=== PATIENT | female | born 1965 | race African-American/Black ===

== ENCOUNTER 2016-06-29 10:41 | Emergency (ER) | payer MEDICARE, MEDICAID ==
[2016-06-29 11:01] VITALS: TEMP 97.3; BMI 23.9
[2016-06-29 11:18] LABS: MPV 6.8 fL (7.4-10.4)
[2016-06-29 11:32] LABS: BLOOD UREA NITROGEN 64 MG/DL (7-17); CALCIUM 5.9 MG/DL (8.4-10.2); CALCULATED OSMOLALITY 291 MOs/Kg (270-290); CHLORIDE 109 mEq/L (98-107); CPK TOTAL WITH POSSIBLE MB 177 IU/L (30-134); GLUCOSE 134 MG/DL (70-99); SODIUM LEVEL 141 mEq/L (137-146); TOTAL PROTEIN 5.7 G/DL (6.3-8.2)
[2016-06-29 11:43] LABS: CALC CORRECTED 6.6 MG/DL (8.4-10.2)
[2016-06-29 11:45] LABS: PARTIAL THROMB. TIME 27.1 SEC (22-35); PT-INR 1.1
[2016-06-29 11:48] LABS: CPKMB 1.8 ng/mL (0-4.5)
--- NOTE | 2016-06-29 12:08 | EDPRACDOC ---
ED Hypoglycemia - General Information Chief Complaint: Generalized Weakness Information Source: Patient, Entry Level Manufacturing Engineer Mode of Arrival:: Ambulance Home Medications: Home Medications Insulin Detemir [Levemir] 16 unit SQ DAILY 02/13/13 Labetalol HCl [Normodyne] 400 mg PO BID 02/13/13 Pravastatin [Pravachol] 80 mg PO HS 02/13/13 Prednisone 5 mg PO DAILY 02/13/13 Tacrolimus [Prograf] 3 mg PO BID 02/13/13 Amlodipine [Norvasc] 10 mg PO DAILY 06/29/16 Ergocalciferol (Vitamin D2) [Vitamin D2 (ergocalciferol)] 50,000 units PO TH Magnesium Oxide [Magox] 400 mg PO DAILY 06/29/16 Mycophenolate Sodium [Myfortic] 540 mg PO BID 06/29/16 Allergies/Adverse Reactions: Allergies Allergy/AdvReac Type Severity Reaction Status Date / Time lisinopril Allergy Severe Edema-Oral/ Verified 06/29/16 11:09 Lip - History of Present Illness [place]: Reports: Confused, Shaky Found: Reports: Disoriented Weakness: Reports: Generalized Weakness Eating: Reports: Missed a Meal Relevent History Of: Reports: Diabetes Modifying Factors: improves with: D50 - Other History Other History: PT PRESENTS AFTER HYPOGLYCEMIC EPISODE THIS MORNING. FOUND WITH BLOOD SUGAR IN 60'S. TOOK LEVEMIR LAST NIGHT AND HAD MEAL AT THAT TIME BUT MISSED BREAKFAST THIS AM. AFTER DEXTROSE FROM EMS SHE RETURNED TO NORMAL MENTAL STATUS BUT STILL FELT A LITTLE SHAKY. - Treatment Prior to ED Arrival Reported Medications/Treatment CUSTOMS COMPLIANCE DIRECTOR Treated With Medication CUSTOMS COMPLIANCE DIRECTOR YES Medications CUSTOMS COMPLIANCE DIRECTOR (Medication/ /2 d50; glucose; Dose/Time) EMS Treatment BLS IV Yes ED Past Medical History - History Reviewed Yes Nurses notes reviewed and agree except as marked - Patient Medical History Cardiac History: Reports: Hypertension, Hypercholesterolemia GI/ History: Reports: Renal Disease Psychological History: Denies: Depression Systemic History: Reports: Anemia, Diabetes - Family Medical History Reports: Diabetes (FATHER). Denies: Hypertension, Cancer, Stroke, Cardiac Disorders - Social Medical History Smoking Status: Never smoker Lives In: Home EDM Review of Systems - Review of Systems ROS Negative Except as Marked: Yes All systems reviewed and were negative except as marked Constitutional: Fatigue. negative: Fever Respiratory: negative: Shortness of Breath Cardiovascular: negative: Chest Pain Gastrointestinal: negative: Pain, Vomiting Endocrine: Diabetes - Physical Exam Constitutional: Alert Oriented to: Time, Person, Place Last recorded Vital Signs: Last Vital Signs Temp 97.3 F L 06/29/16 10:55 Pulse 98 06/29/16 10:55 Resp 18 06/29/16 10:55 BP 133/66 06/29/16 10:55 Pulse Ox 98 06/29/16 10:55 Oxygen Pulse Oxygen Saturation 98 O2 Device Oxygen Flow Rate Fraction of Inspired Oxygen ( FIO2) - HEENT Head: negative: Deformity, Laceration Eye Exam: negative: Conjunctival Injection, Pale Conjunctiva Oropharynx: negative: Membranes Dry Nose: negative: Congestion, Discharge Neck: negative: Limited ROM - Respiratory/Cardiovascular Respiratory: Normal - CTA. negative: Accessory Muscle Use, Diminished, Tachypnea Cardiovascular: negative: Bradycardia, Tachycardia, Irregular - GI Auscultation: Normal Palpation: Normal Tenderness: Non tender - Integumentary Skin: Warm, Dry. negative: Rash - Neurologic Memory Impaired: Normal Motor Function: Normal Mood Description: Anxious Thought: Coherent Perception: Normal - Results 06/29/16 11:05 06/29/16 11:05 WBC 7.3 xk/uL (3.8-10.8) 06/29/16 11:05 RBC 2.93 xM/uL (4.20-5.40) L 06/29/16 11:05 Hgb 8.0 g/dL (12.0-16.0) L 06/29/16 11:05 Hct 25.0 % (36-47) L 06/29/16 11:05 MCV 85 fL (81-99) 06/29/16 11:05 MCH 27.2 pg (27-32) 06/29/16 11:05 MCHC 31.8 g/dl (33-36) L 06/29/16 11:05 RDW 17.4 % (11.5-14.5) H 06/29/16 11:05 Plt Count 136 xk/uL (130-400) 06/29/16 11:05 MPV 6.8 fL (7.4-10.4) L 06/29/16 11:05 PT 11.7 SEC (9.2-11.2) H 06/29/16 11:05 INR 1.1 06/29/16 11:05 APTT 27.1 SEC (22-35) 06/29/16 11:05 Sodium 141 mEq/L (137-146) 06/29/16 11:05 Potassium 2.8 mEq/L (3.5-5.1) L 06/29/16 11:05 Chloride 109 mEq/L (98-107) H 06/29/16 11:05 Carbon Dioxide 17 mMOL/L (22-33) L 06/29/16 11:05 Anion Gap 18 mEq/L (8-16) H 06/29/16 11:05 BUN 64 MG/DL (7-17) H 06/29/16 11:05 Creatinine 8.30 MG/DL (0.52-1.04) H 06/29/16 11:05 Estimated GFR (MDRD) 6 mL/min (>=60) L 06/29/16 11:05 Glucose 134 MG/DL (70-99) H 06/29/16 11:05 POC Capillary Glucose 151 MG/DL (70-99) H 06/29/16 10:49 Calculated Osmolality 291 MOs/Kg (270-290) H 06/29/16 11:05 Calcium 5.9 MG/DL (8.4-10.2) L* 06/29/16 11:05 Corrected Calcium 6.6 MG/DL (8.4-10.2) L* 06/29/16 11:05 Total Bilirubin 0.4 MG/DL (0.2-1.3) 06/29/16 11:05 AST 19 IU/L (14-36) 06/29/16 11:05 ALT 31 IU/L (9-52) 06/29/16 11:05 Alkaline Phosphatase 76 IU/L (38-126) 06/29/16 11:05 Creatine Kinase 177 IU/L (30-134) H 06/29/16 11:05 CK-MB (CK-2) 1.8 ng/mL (0-4.5) 06/29/16 11:05 Troponin I 0.08 ng/mL (<.04) 06/29/16 11:05 Total Protein 5.7 G/DL (6.3-8.2) L 06/29/16 11:05 Albumin 3.3 G/DL (3.5-5.0) L 06/29/16 11:05 Lab Results 06/29/16 06/29/16 06/29/16 11:05 11:05 11:05 WBC 7.3 RBC 2.93 L Hgb 8.0 L Hct 25.0 L MCV 85 MCH 27.2 MCHC 31.8 L RDW 17.4 H Plt Count 136 MPV 6.8 L PT 11.7 H INR 1.1 APTT 27.1 Sodium 141 Potassium 2.8 L Chloride 109 H Carbon Dioxide 17 L Anion Gap 18 H BUN 64 H Creatinine 8.30 H Estimated GFR (MDRD) 6 L Glucose 134 H POC Capillary Glucose Calculated Osmolality 291 H Calcium 5.9 L* Corrected Calcium 6.6 L* Total Bilirubin 0.4 AST 19 ALT 31 Alkaline Phosphatase 76 Creatine Kinase 177 H CK-MB (CK-2) 1.8 Troponin I 0.08 Total Protein 5.7 L Albumin 3.3 L 06/29/16 10:49 WBC RBC Hgb Hct MCV MCH MCHC RDW Plt Count MPV PT INR APTT Sodium Potassium Chloride Carbon Dioxide Anion Gap BUN Creatinine Estimated GFR (MDRD) Glucose POC Capillary Glucose 151 H Calculated Osmolality Calcium Corrected Calcium Total Bilirubin AST ALT Alkaline Phosphatase Creatine Kinase CK-MB (CK-2) Troponin I Total Protein Albumin - Departure Yes I personally saw and evaluated the patient. Disposition: Home Condition: Stable Final Diagnosis: Hypoglycemia Instructions: Diabetic Hypoglycemia (ED) Education/Counseling Given To: Patient Education/Counseling Given Regarding: Diagnosis, Treatment, Prognosis, Follow Up Referrals: None,No Provider [Primary Care Provider] - One Week Prescriptions: Continue Tacrolimus [Prograf] 3 mg PO BID Labetalol HCl [Normodyne] 400 mg PO BID Prednisone 5 mg PO DAILY Pravastatin [Pravachol] 80 mg PO HS Insulin Detemir [Levemir] 16 unit SQ DAILY Ergocalciferol (Vitamin D2) [Vitamin D2 (ergocalciferol)] 50,000 units PO TH Magnesium Oxide [Magox] 400 mg PO DAILY Amlodipine [Norvasc] 10 mg PO DAILY Mycophenolate Sodium [Myfortic] 540 mg PO BID Additional Instructions: MAKE SURE TO EAT A MEAL EVERY MORNING OR YOUR BLOOD SUGAR WILL DROP AGAIN.
[2016-06-29 12:35] VITALS: BP 140/65; PULSE 70
[2016-06-29 12:49] LABS: SEG NEUTROPHIL 70 % (45-76)
== END 2016-06-29 12:25 | disposition home or self-care (01) ==
LOC: ED 10:41
DX: E11.649 Type 2 diabetes mellitus with hypoglycemia without coma (principal)
CPT/HCPCS: 36415; 80053; 82550; 82553; 82962; 84484; 85007; 85027; 85610; 85730; 93005; 99283

== ENCOUNTER 2016-07-05 13:19 | Emergency (ER) | payer MEDICARE, MEDICAID ==
[2016-07-05 13:19] VITALS: BMI 23.9
[2016-07-05 13:29] VITALS: TEMP 98.4
[2016-07-05] MEDS ORDERED: SODIUM CHLORIDE 0.9% 10 ML FLUSH FLUSH PRN (13:37)
--- NOTE | 2016-07-05 13:37 | EDPRACDOC ---
- General Information Chief Complaint: Generalized Weakness Stated Complaint: WEAKNESS Time Seen by Provider: 07/05/16 13:29 Information Source: Patient Home Medications: Home Medications Insulin Detemir [Levemir] 16 unit SQ QHS 02/13/13 Labetalol HCl [Normodyne] 400 mg PO BID 02/13/13 Pravastatin [Pravachol] 80 mg PO HS 02/13/13 Prednisone 5 mg PO DAILY 02/13/13 Tacrolimus [Prograf] 3 mg PO BID 02/13/13 Amlodipine [Norvasc] 10 mg PO DAILY 06/29/16 Ergocalciferol (Vitamin D2) [Vitamin D2 (ergocalciferol)] 50,000 units PO TH Magnesium Oxide [Magox] 400 mg PO DAILY 06/29/16 Mycophenolate Sodium [Myfortic] 540 mg PO BID 06/29/16 Calcium Acetate 1,334 mg PO TID 07/05/16 Allergies/Adverse Reactions: Allergies Allergy/AdvReac Type Severity Reaction Status Date / Time lisinopril Allergy Severe Edema-Oral/ Verified 06/29/16 11:09 Lip - History of Present Illness Onset: today Exact Onset of Symptoms: Unknown HPI: PT STATES SHE WAS SITTING AT HOME AFTER DIALYSIS WHEN SHE DEVELOPED PRESSURE IN THE CENTER OF HER CHEST, SOBR, GENERALIZED WEAKNESS, STATES THAT THE ROOM WAS "GOING BLACK" BUT SHE DID NOT PASS OUT. PT STATES THAT SHE NO LONGER HAS CP OR SOBR BUT STILL FEELS A LITTLE DIZZY. PT STATES JUST WENT BACK ON DIALYSIS A WEEK AGO Symptoms Started: Reports: Suddenly, At Rest Symptoms Description: Improved Weakness: Bilateral: Generalized Symptoms: Reports: Change of vision, Faintness, Near Syncope, Weak. Denies: Difficult speech, Imbalance, Numbness, On Med questionable toxic, Syncope, Tinnitus, Vertigo Symptom Severity: Reports: Unable to performs ADL's Relevant History of: Reports: DM. Denies: Anemia, CVA, Electrolyte disorder, GI Bleed, [place], TIA Associated signs and symptoms:: Reports: Chest pain. Denies: GI Bleed, Diarrhea , Fever, Headache, Nausea, Palpitations, Vomiting ED Past Medical History - History Reviewed Yes Nurses notes reviewed and agree except as marked - Patient Medical History Cardiac History: Reports: Hypertension, Hypercholesterolemia GI/ History: Reports: Renal Disease Psychological History: Denies: Depression Systemic History: Reports: Anemia, Diabetes Surgical History: Denies: Hysterectomy - Family Medical History Reports: Diabetes (FATHER). Denies: Hypertension, Cancer, Stroke, Cardiac Disorders - Social Medical History Smoking Status: Never smoker ETOH: None Substance Abuse: None EDM Review of Systems - Review of Systems Constitutional: Weakness. negative: Chills, Fever Eyes: negative: Blurred Vision, Double Vision Ears: negative: Drainage Throat: negative: Pain Nose: negative: Congestion, Discharge Respiratory: Shortness of Breath. negative: Cough, Wheezing Cardiovascular: Chest Pain, Syncope (NEAR SYNCOPE). negative: Palpitations Gastrointestinal: negative: Diarrhea, Nausea, Pain, Vomiting Genitourinary: negative: Dysuria, Frequency Neurological: Dizziness, Weakness. negative: Headache, Numbness Musculoskeletal: No Symptoms Reported Integumentary: No Symptoms Reported - Physical Exam Constitutional: Alert (Awake), No apparent distress Oriented to: Time, Person, Place Last recorded Vital Signs: Last Vital Signs Temp 98.4 F 07/05/16 13:23 Pulse 65 07/05/16 13:23 Resp 18 07/05/16 13:23 BP 128/64 07/05/16 13:23 Pulse Ox 100 07/05/16 13:23 Oxygen Pulse Oxygen Saturation 100 O2 Device Oxygen Flow Rate Fraction of Inspired Oxygen ( FIO2) - HEENT Head: Normal ( normocephalic) Eye Exam: Normal (PERRL, EOMI, Sclera white) Oropharynx: Normal (Pharynx:Moist without exudate,Gums-no swelling) Tympanic Membrane: Normal ENT EAC: Normal TMJ: Normal Nose: No Symptoms Reported (septum midline) Neck: Normal (FROM, trachea at midline) - Respiratory/Cardiovascular Respiratory: Normal - CTA (BBS clear to auscultation without adventitious sounds ) Cardiovascular: Normal (RRR without murmur, gallop or rub) - GI Auscultation: Normal (NABS) Palpation: Normal (Soft,No rebound or guarding, non distended) Tenderness: Non tender Pimentel's Sign: Negative - Musculoskeletal Back: Normal (Non-Tender) Extremities: Normal (Normal tone, Pulses 2+ No cyanosis or edema, FROM) - Integumentary Skin: Normal, Warm, Dry Lymphatics: Normal (no adenopathy) - Neurologic Memory Impaired: Normal Motor Function: Normal (Normal tone, Pulses 2+ No cyanosis or edema, FROM) Cranial Nerve: Normal (CN II-X11 intact sensation, strength 5/5) Cerebellar: Normal Mood Description: Normal Perception: Normal - Differential Diagnosis Anemia, Dehydration, Dysrhythmia, Electrolyte disorder, Other ([place]) - Re-evaluation Re-evaluation 1 Re-evaluation Time: 17:10 (NO COMPLAINTS) - Results 07/05/16 13:40 07/05/16 13:50 07/05/16 17:10 Laboratory Results - last 24 hr 07/05/16 07/05/16 07/05/16 13:40 13:40 13:50 WBC 11.1 H RBC 3.62 L Hgb 9.7 L D Hct 31.1 L MCV 86 MCH 26.7 L MCHC 31.0 L RDW 16.8 H Plt Count 170 MPV 7.4 Neut % (Auto) 84.9 H Lymph % (Auto) 5.0 L [place] % (Auto) 7.9 Eos % (Auto) 1.8 Baso % (Auto) 0.4 Absolute Neuts (auto) 9.32 H Absolute Lymphs (auto) 0.56 L PT 10.5 INR 1.0 APTT 21.2 L Sodium 137 Potassium 2.9 L Chloride 91 L Carbon Dioxide 36 H Anion Gap 13 BUN 10 Creatinine 2.90 H Estimated GFR (MDRD) 21 L Glucose 140 H Calculated Osmolality 265 L Calcium 8.9 Total Bilirubin 0.5 AST 31 ALT 34 Alkaline Phosphatase 95 Troponin I 0.04 Total Protein 6.7 Albumin 4.0 07/05/16 16:20 WBC RBC Hgb Hct MCV MCH MCHC RDW Plt Count MPV Neut % (Auto) Lymph % (Auto) [place] % (Auto) Eos % (Auto) Baso % (Auto) Absolute Neuts (auto) Absolute Lymphs (auto) PT INR APTT Sodium Potassium Chloride Carbon Dioxide Anion Gap BUN Creatinine Estimated GFR (MDRD) Glucose Calculated Osmolality Calcium Total Bilirubin AST ALT Alkaline Phosphatase Troponin I 0.04 Total Protein Albumin - EKG EKG #1 EKG Time: 13:46 -: Yes EKG interpreted by me Rate: bpm: 65 [place]: Normal Rhythm: NSR Block: None ST: Nonsp Comparison: 06/29/16 (NO CHANGE) Decision Time to Discharge: 17:11 - Departure Disposition: Home Condition: Stable Final Diagnosis: Generalized weakness, Hypokalemia Chest pain Qualifiers: Chest pain type: unspecified Qualified Code(s): R07.9 - Chest pain, unspecified Instructions: Weakness (ED), Chest Pain (ED) Education/Counseling Given To: Patient Education/Counseling Given Regarding: Diagnosis, Treatment, Prognosis, Follow Up Referrals: None,No Provider [NonStaff] - One Week Prescriptions: Continue Tacrolimus [Prograf] 3 mg PO BID Labetalol HCl [Normodyne] 400 mg PO BID Prednisone 5 mg PO DAILY Pravastatin [Pravachol] 80 mg PO HS Insulin Detemir [Levemir] 16 unit SQ QHS Ergocalciferol (Vitamin D2) [Vitamin D2 (ergocalciferol)] 50,000 units PO TH Magnesium Oxide [Magox] 400 mg PO DAILY Amlodipine [Norvasc] 10 mg PO DAILY Mycophenolate Sodium [Myfortic] 540 mg PO BID Calcium Acetate 1,334 mg PO TID Additional Instructions: FOLLOW UP ON DIALYSIS ON SUNDAY
[2016-07-05 14:29] LABS: AUTOMATED BASOPHIL 0.4 % (0-2); AUTOMATED EOSINOPHIL 1.8 % (0-5); AUTOMATED MONOCYTE 7.9 % (3-10); AUTOMATED NEUTROPHIL 84.9 % (45-76); MPV 7.4 fL (7.4-10.4)
[2016-07-05 14:42] LABS: BLOOD UREA NITROGEN 10 MG/DL (7-17); CALCIUM 8.9 MG/DL (8.4-10.2); CALCULATED OSMOLALITY 265 MOs/Kg (270-290); CHLORIDE 91 mEq/L (98-107); GLUCOSE 140 mg/dL (70-99); SODIUM LEVEL 137 mEq/L (137-146); TOTAL PROTEIN 6.7 G/DL (6.3-8.2)
[2016-07-05 14:42] LABS: PARTIAL THROMB. TIME 21.2 SEC (22-35)
--- NOTE | 2016-07-05 15:40 | DIRPT ---
CLINICAL DATA: Chest pain and weakness. EXAM: PORTABLE CHEST 1 VIEW COMPARISON: 03/25/2012. FINDINGS: Portable upright chest at 1523 hours. The lungs are clear wiithout focal pneumonia, edema, pneumothorax or pleural effusion. The cardio pericardial silhouette is enlarged. There is pulmonary vascular congestion without overt pulmonary edema. The visualized bony structures of the thorax are intact. Telemetry leads overlie the chest. IMPRESSION: Enlargement of the cardiopericardial silhouette with vascular congestion. Electronically Signed By: Wilmer Jackman M.D. On: 07/05/2016 15:37
[2016-07-05 17:32] VITALS: BP 142/67; PULSE 76
== END 2016-07-05 17:38 | disposition home or self-care (01) ==
LOC: ED 13:19
DX: E87.6 Hypokalemia (principal); R53.1 Weakness
CPT/HCPCS: 36415; 71010; 80053; 84484; 85025; 85610; 85730; 93005; 99283